=== PATIENT | male | born 1985 | race Caucasian/White ===

== ENCOUNTER 2020-11-21 00:10 | Emergency (ER) | payer OTHER, SELFPAY ==
[2020-11-21] VITALS (16 sets, daily range): BP systolic 122–152; BP diastolic 65–80; PULSE 64–83; RESP 13–27; TEMP 36.2; O2SAT 95–98
--- NOTE | 2020-11-21 | RT.EKG_ITS ---
APPROVED REPORT Exam: Resting ECG Reason for Exam: CHEST PAIN Patient Location: E HR:78 bpm ECG Measurements Heart Rate 78 AXIS AR 174 P 15 QRSd 104 QRS 4 QT 385 T 23 QTc 439 Conclusion Sinus rhythm...normal P axis, V-rate 60- 99 Physician: no stemi, q wave in lead III. Inverted T wave in V 1.
[2020-11-21] MEDS: Normal Saline 500 ML IV (00:33)
[2020-11-21] MEDS: Ketorolac 15 MG/ML VIAL IVP (00:33)
[2020-11-21 00:37] LABS: Abs Immature Grans 0.02 10^3/uL (0.0-0.06); HCT 42.2 % (40.0-50.0); HGB 14.1 g/dL (13.5-17.5); MCH 30.9 pg (27.0-33.0); MCHC 33.4 % (32.0-36.0); MCV 92.3 fL (80-95); MPV 10.1 fL (8.0-11.0); Nucleated RBC 0 %; Platelet Count 245 10^3/uL (130-400); RBC 4.57 10^6/uL (4.36-5.78); RDW 12.1 % (11.8-14.1); RDW-SD 41.2 fL; WBC 5.61 10^3/uL (4.4-10.8)
[2020-11-21 00:52] LABS: INR 1.1 (0.9-1.1); PTT Activated 23.6 sec (21.0-27.5); Prothrombin Time 10.9 sec (9.3-11.0)
[2020-11-21 00:53] LABS: ALT 95 U/L (16-63); AST 40 U/L (15-37); Albumin 4.2 g/dL (3.4-5.0); Alkaline Phosphatase 126 U/L (46-116); Anion Gap 7.3 mmol/L (3-11); BUN 15 mg/dL (7-18); Bilirubin, Total 0.6 mg/dL (0.2-1.0); CO2 27.7 mmol/L (21.0-32.0); CREATININE 1.2 mg/dL (0.70-1.30); Chloride 104 mmol/L (98-107); Glucose 113 mg/dL (74-106); Lipase 115 U/L (73-393); Potassium 3.5 mmol/L (3.5-5.1); Sodium 139 mmol/L (136-145); Total Protein 7.4 g/dL (6.4-8.2)
[2020-11-21 00:56] LABS: Troponin I < 0.05 ng/mL (<0.06)
[2020-11-21 01:10] LABS: Absolute Neutrophil Count 2.81 10^3/uL (1.2-6.7); Atypical Lymphocytes % 5; Bands % 2
[2020-11-21 01:11] LABS: Absolute Eosinophil Count 0.17 10^3/uL (0.0-0.7); Absolute Monocyte Count 0.84 10^3/uL (0.1-0.8); Diff Comment Manual Differential; RBC Morphology Normal
--- NOTE | 2020-11-21 01:15 | DI.CT_ITS ---
Exam(s) CT CHEST PE CTA EXAM: CT CHEST PE CTA and upper abdomen CLINICAL HISTORY: right chest pain, elevated dimer, r/o pe. TECHNIQUE: Imaging Protocol: Axial CT angiography was performed with multi-slice acquisition and mu lti-planar and/or 3D reconstructions. [id number] includes clavicles through inferior poles of the kidneys. CONTRAST MATERIAL: Intravenous: Omnipaque 350 Contrast volume:100 ml COMPARISON: No exams were available for comparison FINDINGS: Exam is limited by respiratory motion and poor bolus timing. Pulmonary Arteries: Suboptimal bolus timing. No central pulmonary emboli. Tracheobronchial tree: Pat ent where visualized. Mediastinum and Hortencia: No dominant adenopathy or fluid collection. Pulmonary parenchyma: No consolidation or dominant measurable mass. No architectural distortion. Pleura: No effusion or pneumothorax. Heart: The heart is not dilated. No coronary artery calcifications are seen. Aorta: Thoracic aorta non-dilated. Upper abdomen: Enlarged liver. Question mild fatty infiltration. Gallbladder unremarkable. Spleen normal in size. Pancreas, adrenals and kidneys as well as visualized bowel appear normal. Bones: Normal. IMPRESSION: Suboptimal evaluation for pulmonary emboli is due to poor bolus timing. No central emboli are identi fied. No other acute abnormality is seen. Enlarged liver with probable mild fatty infiltration. RADIATION DOSE DELIVERED: 738.53mGy.cm Total DLP DATA REPOSITORY: All CT scans at this facility are submitted to the National Radiology Data Registry (NRDR) Dose Index Registry (DIR) with the [employer] [place] [employer] ([employer]). RADIATION OPTIMIZATION: All CT scans at this facility use at least one of these dose optimization te chniques: automated exposure control; mA and/or kV adjustment per patient size (includes targeted exa ms where dose is matched to clinical indication); or iterative reconstruction.
[2020-11-21 01:17] LABS: D-Dimer 683 ng/mlFEU (<500)
[2020-11-21] MEDS: Omnipaque 350 MG/ML 100 ML BTL IJ (01:47)
[2020-11-21] MEDS: Normal Saline Flush 10 ML SYR IVP (01:48)
--- NOTE | 2020-11-21 02:03 | DI.VRAD_ITS ---
PROCEDURE INFORMATION: Exam: CTA Chest With Contrast Exam date and time: 11/21/2020 1:25 AM Age: 35 years old Clinical indication: Right-sided; Patient HX: Right chest pain, elevated dimer, R/O pe TECHNIQUE: Imaging protocol: Computed tomographic angiography of the chest with contrast. 3D rendering (Not supervised by radiologist): MIP and/or 3D reconstructed images were created by the technologist. Radiation optimization: All CT scans at this facility use at least one of these dose optimization techniques: automated exposure control; mA and/or kV adjustment per patient size (includes targeted exams where dose is matched to clinical indication); or iterative reconstruction. Contrast material: OMNIPAQUE 350; Contrast volume: 100 ml; Contrast route: INTRAVENOUS (IV); COMPARISON: No relevant prior studies available. FINDINGS: Pulmonary arteries: Evaluation for a pulmonary embolus is limited due to contrast bolus timing and respiratory motion artifact. No large central pulmonary embolism. The distal segmental and subsegmental pulmonary artery branches are not well evaluated. Aorta: The thoracic aorta opacifies normally with contrast without aneurysm. Lungs: The lungs are clear without infiltrate or edema. Pleural spaces: No pleural effusion. No pneumothorax. Heart: The heart is normal in size. No pericardial effusion. No evidence for right heart strain. RV/LV ratio 0.8. Mediastinal space: The esophagus is normal appearance. Lymph nodes: Unremarkable. No enlarged lymph nodes. Liver: The liver is mildly enlarged. Spleen: The spleen is mildly enlarged. Adrenal glands: The bilateral adrenal glands are normal appearance. Kidneys and ureters: The bilateral kidneys are normal appearance. Stomach and bowel: The stomach, imaged small bowel and colon are normal appearance. Bones/joints: Mild thoracic spondylosis. No acute fracture. Soft tissues: Unremarkable. IMPRESSION: 1. Evaluation for pulmonary embolus is limited due to respiratory motion artifact and contrast bolus timing. No large central pulmonary embolus or evidence for right heart strain. 2. Hepatosplenomegaly. Dictated and Authenticated by: Venice Ayers MD. Ordering:GWENDOLYN Huang MD
--- NOTE | 2020-11-21 02:32 | W.ED.GENAD ---
Discharge Plan Disposition Patient Disposition: HOME Condition: Good Discharge Details Clinical Impression: Chest pain ED Provider: Sal Fowler Discharge Instructions Instructions: Chest Pain (ED) Additional Instructions: At this time your work-up is returned very reassuring and normal. No signs of blood clots, heart attack, or other significant abnormality. Your liver function tests are slightly elevated. Please follow-up with your family doctor in the next 1 to 2 weeks for reassessment and potential redraw of your labs to make sure your liver function is improving. Our caseworker protective services will help set up a new family doctor for you. If you notice a return of your symptoms please take ibuprofen and Maalox. However if you notice worsening of your symptoms please return immediately for reassessment. If you notice any worsening of your symptoms, or any new symptoms such as vomiting, diarrhea, fever, chills, shortness of breath, chest pain, numbness, weakness, or fainting , please return immediately to the emergency department for reevaluation. Please follow up with your primary care provider as soon as possible for reassessment and reevaluation. As always, it was a pleasure participating in your medical care today. Medical Decision Making 35-year-old male with no significant past medical history presents today for evaluation of chest pain. Patient states that for the last 6 hours he has had pain in his mid to right chest, started at 5 PM, it was dull in nature and will occasionally oscillate to a sharp sensation. Radiates towards his right arm and goes to his back. He denies any tearing or ripping sensation. He does admit to some mild pleuritic pain when he takes a deep breath when his chest pain is at its worse. Denies PE risk factors such as recent long car rides, immobilization, recent surgery, prior history of DVT or PE, family history of PE or DVT, morbid obesity, exogenous estrogen and smoking, hemoptysis, history of cancer. The patient exercises regularly, and denies any exertional components. He denies any recent shortness of breath with exercise. He has a strong family history of cardiac disease. He denies any tobacco or drug use. He denies any excessive alcohol use. He denies any recent spicy foods. No other complaints at this time. No other modifying factors. No cough no fever no shortness of breath. Physical exam is unremarkable, differential includes PE, less likely cardiac etiology, as well as potential biliary colic, GERD, or esophageal spasm. We will give a GI cocktail and Toradol, will get a D-dimer, gently rehydrate, monitor closely and reassess. EKG is unremarkable for any acute process, signs of STEMI or ACS. 3:42 AM Laboratory work-up has returned relatively unremarkable, troponin normal, repeat troponin normal, initial EKG unremarkable, repeat EKG unchanged. Minimal elevation in liver function test, D-dimer was elevated at 683, CTA was ordered and demonstrates no significant abnormality. No white count bandemia or left shift. After GI cocktail and Toradol patient has near complete resolution of his symptoms. Patient feels well and would like to go home. Symptoms appearing inconsistent with ACS. At this time the patient symptoms appear inconsistent with PE, dissection, cholecystitis. Patient will be discharged home, will recommend close follow-up with PCP. We will have caseworker protective services help establish follow-up with new family doctor. I have extensively reviewed the treatment plan and discharge instructions with the patient and their family. I have addressed all patient concerns at this time. The patient and family was made aware of what symptoms to monitor for that would warrant a return to the emergency department. Discussed the plan with the patient and family, they demonstrate verbal understanding and agreement with our assessment and plan at this time. The documentation in this chart was dictated using [employer] dictation software. Please excuse any dictation errors. HPI General Date/Time Provider Initiated Documentation: 11/21/20 00:27. HPI Narrative: 35-year-old male with no significant past medical history presents today for evaluation of chest pain. Patient states that for the last 6 hours he has had pain in his mid to right chest, started at 5 PM, it was dull in nature and will occasionally oscillate to a sharp sensation. Radiates towards his right arm and goes to his back. He denies any tearing or ripping sensation. He does admit to some mild pleuritic pain when he takes a deep breath when his chest pain is at its worse. Denies PE risk factors such as recent long car rides, immobilization, recent surgery, prior history of DVT or PE, family history of PE or DVT, morbid obesity, exogenous estrogen and smoking, hemoptysis, history of cancer. The patient exercises regularly, and denies any exertional components. He denies any recent shortness of breath with exercise. He has a strong family history of cardiac disease. He denies any tobacco or drug use. He denies any excessive alcohol use. He denies any recent spicy foods. No other complaints at this time. No other modifying factors. No cough no fever no shortness of breath. Related Data Allergies Allergy/AdvReac Type Severity Reaction Status Date / Time cephalexin [From Keflex] Allergy Unverified 11/21/20 00:35 gabapentin Allergy Unverified 11/21/20 00:35 General Stated Complaint: Chest Pain RANULFO: 2 Review of Systems All systems reviewed & are unremarkable except as noted in HPI and below [facility] Social History Smoking/Tobacco Use Status: Never Smoking risk assessment performed?: Yes Alcohol Intake: current Alcohol Intake frequency: a few times a month Drug use: Never Substance use type: does not use Do you feel safe at home: Yes Do you feel safe in your relationship?: Yes Exam Narrative Exam Narrative: 1.Const: Well-nourished, Well-developed, appearing stated age 2.Eyes: PERRL, no conjunctival injection, and symmetrical lids. 3.ENT: Atraumatic external nose and ears. Moist MM. Neck: Symmetric, trachea midline, No thyromegaly. 4.CVS: +S1/S2, No murmurs or gallops. Peripheral pulses 2+ and equal in all extremities. Brisk capillary refill in all extremities. 5.RESP: Unlabored respiratory effort. Clear to auscultation bilaterally. No wheezes rales or rhonchi 6.GI: Soft, Nontender/Nondistended, No hepatosplenomegaly. No guarding or rebound. 7.MSK: Normocephalic/Atraumatic, Extremities w/o deformity or ttp No cyanosis or clubbing, Normal movement of all extremities 8.Skin: Warm, Dry. No rashes or lesions. 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 Sensation grossly intact, no focal neurologic deficits. 10.Psych: (AAO) x3. Appropriate mood and affect Course Vital Signs Vital signs: Vital Signs Temperature 36.2 C L 11/21/20 00:14 Pulse 83 11/21/20 00:14 Respiratory Rate 24 11/21/20 00:14 Blood Pressure 152/80 H 11/21/20 00:14 Pulse Oximetry 97 11/21/20 00:14 Temperature 36.2 C L 11/21/20 00:14 Temperature Source Temporal Artery Scan 11/21/20 00:14 Pulse 64 11/21/20 01:31 Pulse 67 11/21/20 01:31 Respiratory Rate 18 11/21/20 01:31 Respiratory Effort Non-Labored 11/21/20 00:20 Respiratory Depth Normal 11/21/20 00:20 Respiratory Pattern Normal 11/21/20 00:20 Blood Pressure 125/69 11/21/20 01:31 Blood Pressure Mean 82 11/21/20 01:31 Blood Pressure Position Sitting 11/21/20 00:14 Pulse Oximetry 95 11/21/20 01:31 Oxygen Delivery Method Room Air 11/21/20 00:14 Oxygen Flow Rate 0 11/21/20 00:14 Pain Level 5 11/21/20 00:33 Lab/Test Results Lab/Test Results: Laboratory Tests Range/Units 11/21/20 11/21/20 11/21/20 00:30 00:30 00:30 WBC (4.4-10.8) 10^3/uL 5.61 RBC (4.36-5.78) 10^6/uL 4.57 Hgb (13.5-17.5) g/dL 14.1 Hct (40.0-50.0) % 42.2 MCV (80-95) fL 92.3 MCH (27.0-33.0) pg 30.9 MCHC (32.0-36.0) % 33.4 RDW (11.8-14.1) % 12.1 Plt Count (130-400) 10^3/uL 245 MPV (8.0-11.0) fL 10.1 Immature Gran % 0.0 Neutrophils % 48.0 Band Neutrophils % 2 Lymphocytes % 27.0 Atypical Lymphs % 5 Monocytes % 15.0 Eosinophils % 3.0 Basophils % 0.0 Nucleated RBC % % 0 Absolute Neutrophils (1.2-6.7) 10^3/uL 2.81 Absolute Lymphocytes (1.2-3.4) 10^3/uL 1.80 Absolute Monocytes (0.1-0.8) 10^3/uL 0.84 H Absolute Eosinophils (0.0-0.7) 10^3/uL 0.17 Absolute Basophils (0.0-0.2) 10^3/uL 0.00 RBC Morphology Normal PT (9.3-11.0) sec 10.9 INR (0.9-1.1) 1.1 APTT (21.0-27.5) sec 23.6 D-Dimer (<500) ng/mlFEU 683 H Sodium (136-145) mmol/L 139 Potassium (3.5-5.1) mmol/L 3.5 Chloride (98-107) mmol/L 104 Carbon Dioxide (21.0-32.0) mmol/L 27.7 Anion Gap (3-11) mmol/L 7.3 BUN (7-18) mg/dL 15 Creatinine (0.70-1.30) mg/dL 1.2 Estimated GFR/1.73 m2 (mL/min/1.73m2) >= 60.00 Glucose (74-106) mg/dL 113 H Calcium (8.5-10.1) mg/dL 9.0 Total Bilirubin (0.2-1.0) mg/dL 0.6 AST (15-37) U/L 40 H ALT (16-63) U/L 95 H Alkaline Phosphatase (46-116) U/L 126 H Troponin I (<0.06) ng/mL < 0.05 Total Protein (6.4-8.2) g/dL 7.4 Albumin (3.4-5.0) g/dL 4.2 Lipase (73-393) U/L 115
--- NOTE | 2020-11-21 02:45 | RT.EKG_ITS ---
APPROVED REPORT Exam: Resting ECG Reason for Exam: chest pain Patient Location: E HR:61 bpm ECG Measurements Heart Rate 61 AXIS NC 201 P 16 QRSd 92 QRS -1 QT 424 T 11 QTc 428 Conclusion Sinus rhythm...normal P axis, V-rate 60- 99 Physician: no stemi, unchanged
[2020-11-21 03:16] LABS: Troponin I < 0.05 ng/mL (<0.06)
--- NOTE | 2020-11-21 04:03 | NUR.NOTE ---
Referral to Care Management to establish pcp in 2-3 weeks for chest pain.Nursing Note:
--- NOTE | 2020-11-21 10:58 | CMPROGNOTE_ITS ---
- If Service Date Differs Date of service: 11/21/20 Time of Service: 10:58 Care Management Progress Note Giancarlo is seen in the ED for chest pain. At the request of ED provider, CM coordinates a referral to SOCRATES Noyola, of [facility], on-call provider, to assist Giancarlo in obtaining a follow up appointment and in establishing care with a PCP.
== END 2020-11-21 03:54 | disposition home or self-care (01) ==
PROVIDERS: Emergency Provider Student in an Organized Health Care Education/Training Program
DX: R07.89 Other chest pain (principal); R79.1 Abnormal coagulation profile; Z82.49 Family history of ischemic heart disease and other diseases of the circulatory system
CPT/HCPCS: 36415; 71275; 80053; 83690; 93005; 96361; 96374; 99285; 84484; 85025; 85379; 85610; 85730; 93010; 99284; J1885; J3490

== ENCOUNTER 2022-11-12 12:37 | Outpatient (REF) | payer OTHER, SELFPAY ==
[2022-11-12 16:39] LABS: Anion Gap 8.5 mmol/L (3-11); BUN 20 mg/dL (7-18); CO2 27.5 mmol/L (21.0-32.0); Calcium 9.2 mg/dL (8.5-10.1); Calculated LDL 136 mg/dL (<100); Chloride 103 mmol/L (98-107); Cholesterol 207 mg/dL (<200); Estimated GFR 99.41 (mL/min/1.73m2); Glucose 96 mg/dL (74-106); HDL Cholesterol 35 mg/dL (40-60); Potassium 4.1 mmol/L (3.5-5.1); Sodium 139 mmol/L (136-145); Triglyceride 183 mg/dL (<150)
== END 2022-11-12 12:38 | disposition home or self-care (01) ==
LOC: NCHCN 12:37
PROVIDERS: PCP Physician Assistant; Visit Provider Physician Assistant
DX: E78.00 Pure hypercholesterolemia, unspecified (principal)
CPT/HCPCS: 80048; 80061

== ENCOUNTER 2023-08-21 12:56 | Outpatient (REF) | payer OTHER, SELFPAY ==
[2023-08-21 19:00] LABS: HCT 44.1 % (40.0-50.0); MCH 31.2 pg (27.0-33.0); MCV 92 fL (80-95); MPV 10.3 fL (8.0-11.0); Platelet Count 320 10^3/uL (130-400); RBC 4.81 10^6/uL (4.36-5.78); RDW 12.2 % (11.8-14.1); RDW-SD 40.6 fL; WBC 8.72 10^3/uL (4.4-10.8)
[2023-08-21 19:19] LABS: ALT 59 U/L (16-63); AST 32 U/L (15-37); Albumin 4.2 g/dL (3.4-5.0); Alkaline Phosphatase 86 U/L (46-116); BUN 20 mg/dL (7-18); Bilirubin, Total 0.5 mg/dL (0.2-1.0); CREATININE 1.1 mg/dL (0.70-1.30); Calcium 8.7 mg/dL (8.5-10.1); Chloride 103 mmol/L (98-107); Estimated GFR 88.12 (mL/min/1.73m2); Glucose 97 mg/dL (74-106); Potassium 4.1 mmol/L (3.5-5.1); Sodium 138 mmol/L (136-145); TSH (W/Ref FT4) 1.62 uIU/mL (0.36-3.74); Total Protein 7.2 g/dL (6.4-8.2)
[2023-08-27 17:00] LABS: Testosterone, Total 390 ng/dL (240-950)
== END 2023-08-21 12:57 | disposition home or self-care (01) ==
LOC: NCHCN 12:56
PROVIDERS: PCP Physician Assistant; Visit Provider Nurse Practitioner Family
DX: R53.83 Other fatigue (principal)
CPT/HCPCS: 80053; 84403; 85027; 84443

== ENCOUNTER 2024-04-07 15:45 | Outpatient (REF) | payer BC, SELFPAY | END 2024-04-07 15:46 | disposition home or self-care (01) | LOC: NCHCN 15:45 | PROVIDERS: PCP Physician Assistant; Visit Provider Nurse Practitioner Family | DX: Z77.011 Contact with and (suspected) exposure to lead (principal) | CPT/HCPCS: 83655 ==

== ENCOUNTER 2024-05-31 18:12 | Outpatient (REF) | payer BC, SELFPAY ==
[2024-05-31 21:27] LABS: HCT 47.3 % (40.0-50.0); HGB 16.2 g/dL (13.5-17.5); MCHC 34.2 % (32.0-36.0); MCV 91 fL (80-95); Platelet Count 309 10^3/uL (130-400); RBC 5.22 10^6/uL (4.36-5.78); RDW 12.1 % (11.8-14.1); RDW-SD 40.3 fL; WBC 8.07 10^3/uL (4.4-10.8)
[2024-06-01 18:37] LABS: Estradiol 40 pg/mL (<40)
[2024-06-01 19:34] LABS: PSA, Screening 0.5 ng/mL (<=2.5)
[2024-06-05 18:38] LABS: Testosterone, Total 724 ng/dL (240-950)
== END 2024-05-31 18:13 | disposition home or self-care (01) ==
LOC: NCHCN 18:12
PROVIDERS: PCP Nurse Practitioner Family; Visit Provider Nurse Practitioner Family
DX: E29.1 Testicular hypofunction (principal)
CPT/HCPCS: 84153; 84403; 85027; 82670

== ENCOUNTER 2025-03-16 09:57 | Outpatient (REF) | payer BC, SELFPAY ==
[2025-03-16 16:35] LABS: Abs Immature Grans 0.03 10^3/uL (0.0-0.06); HCT 51.9 % (40.0-50.0); HGB 17.6 g/dL (13.5-17.5); Immature Grans % 0.3 %; MCH 31.3 pg (27.0-33.0); MCHC 33.9 % (32.0-36.0); MCV 92 fL (80-95); MPV 11.0 fL (8.0-11.0); Platelet Count 334 10^3/uL (130-400); RBC 5.63 10^6/uL (4.36-5.78); RDW 12.0 % (11.8-14.1); RDW-SD 41.1 fL; WBC 8.63 10^3/uL (4.4-10.8)
== END 2025-03-16 09:58 | disposition home or self-care (01) ==
LOC: NCHCN 09:57
PROVIDERS: PCP Nurse Practitioner Family; Visit Provider Nurse Practitioner Family
DX: E29.1 Testicular hypofunction (principal)
CPT/HCPCS: 84403; 82670; 85025